=== PATIENT | male | born 1970 | race Asian ===

== ENCOUNTER 2019-09-28 07:46 | Day surgery (SDC) | payer OTHER, SELFPAY ==
[2019-09-28] MEDS: sodium chloride 0.9% 1,000 ML 30 ML IV (08:05)
[2019-09-28 08:10] VITALS: BP 132/87; PULSE 60; RESP 18; TEMP 36.1; O2SAT 99
--- NOTE | 2019-09-28 08:12 | ANES.PREANE2 ---
Pre-Anesthetic Assessment Pre-Anesthetic Assessment: Height/Weight: Height 1.75 m Temp Pulse Resp BP Pulse Ox 97 F L 60 18 132/87 99 09/28/19 08:10 09/28/19 08:10 09/28/19 08:10 09/28/19 08:10 09/28/19 08:10 Preop Diagnosis: Symptomatic hemorrhoids Proposed Procedure: Operation Date: 09/28/19 09:00 Proposed Procedures p Hemorroidectomy(Not Applicable) - Juan Canseco MD Last intake: Intake Last Liquid Date 09/27/19 Last Solid Date 09/27/19 Social: Social History: No alcohol and No tobacco Exam: Pre-Anes Outpt Exam: alert, oriented x 3, clear to auscultation bilaterally and regular rate & rhythm Airway: Submandibular: WNL Cervical ROM: WNL MP: 1 Dentition: Other (teeth ok) History/ROS: No significant complaints Anesthetic Plan: ASA status: 1 Anesthesia: Anesthesia Evaluation and General Risk of > 500 ml blood loss (7ml/kg in children): No PFSH Anesthesia PFSH: Surgical History H/O circumcision Family History Other Diabetes Denies family history of CAD (coronary artery disease) Anesthesia complication Bleeding disorder Cancer Social History Smoking and tobacco status: never smoked Alcohol intake: never Household members: family Marital status: History of recent travel: No Data Anesthesia Cardiac Studies: No Data to Display
--- NOTE | 2019-09-28 10:55 | W.PM.OPSUD ---
Surgery/Procedure H&P Update DATE OF PROCEDURE: September 28, 2019 DATE H&P PERFORMED: 09/26/19 H&P UPDATE INFORMATION: I have reviewed H&P completed within last 30 days, I have examined patient prior to procedure and No changes to prior documentation PREOP DIAGNOSIS: Symptomatic hemorrhoids PLANNED PROCEDURE: Operation Date: 09/28/19 09:00 Proposed Procedures p Hemorroidectomy(Not Applicable) - Juan Canseco MD
[2019-09-28 11:01] VITALS: BP 110/66; PULSE 47; RESP 18; TEMP 36.3; O2SAT 100
--- NOTE | 2019-09-28 11:05 | PM.OP ---
Operative Report Date of procedure: September 28, 2019 Pre-op Diagnosis: Symptomatic hemorrhoids Post-op Diagnosis: Grade 4 right lateral hemorrhoidal column. Procedure Done: Open hemorrhoidectomy Pathology: Hemorrhoidal tissue Surgeon: Juan Canseco Anesthesia: MAC Procedure: The patient was taken to the operating room and was placed in the left lateral position under MAC. The perianal area was prepped and draped in a sterile manner. Examination under anesthesia revealed grade 4 internal hemorrhoids in the left lateral location. The hemorrhoidal tissue on the left lateral location was grasped with Allis clamps, and using LigaSure the hemorrhoidal tissue was excised staying superficial to the sphincter muscle up to a point superior to the dentate line. The mucosal defect was closed with running 3-0 chromic suture. 20 cc of combination of Exparel, 0.5% Marcaine and saline was injected for a perianal block. There was no bleeding noted. The excised specimens were sent to pathology. A Vaseline gauze was placed in the anal canal and the patient was transferred to recovery room in stable condition.
== END 2019-09-28 11:45 | disposition home or self-care (01) ==
PROVIDERS: Visit Provider Surgery
PROC: (CPT 46260; principal; 2019-09-28 09:00)
DX: K64.8 Other hemorrhoids (principal)
CPT/HCPCS: 46260; 12345; 88304; C9290; J0690; J3010; J3490; J7030

== ENCOUNTER → 2020-02-08 11:52 | Outpatient (BNVA) | payer OTHER, SELFPAY | PROVIDERS: Visit Provider Family Medicine Adult Medicine | DX: Z00.00 Encounter for general adult medical examination without abnormal findings (principal); K64.9 Unspecified hemorrhoids; Z86.79 Personal history of other diseases of the circulatory system | CPT/HCPCS: 80053; 80061; 83036; 84443; 85025 ==

== ENCOUNTER → 2020-02-12 10:30 | Outpatient (BNVA) | payer OTHER, SELFPAY | PROVIDERS: Visit Provider Surgery | DX: Z20.828 Contact with and (suspected) exposure to other viral communicable diseases (principal); Z12.11 Encounter for screening for malignant neoplasm of colon | CPT/HCPCS: 87635 ==

== ENCOUNTER 2020-02-14 07:32 | Day surgery (SDC) | payer OTHER, SELFPAY ==
[2020-02-14 07:47] VITALS: BP 119/79; PULSE 67; RESP 16; TEMP 36.4; O2SAT 96
--- NOTE | 2020-02-14 08:01 | ANES.PREANE2 ---
Pre-Anesthetic Assessment Pre-Anesthetic Assessment: Height/Weight: Height 1.77 m Weight 81.647 kg Temp Pulse Resp BP Pulse Ox 97.5 F L 67 16 119/79 96 02/14/20 07:47 02/14/20 07:47 02/14/20 07:47 02/14/20 07:47 02/14/20 07:47 Preop Diagnosis: screening colonoscopy Proposed Procedure: Operation Date: 02/14/20 08:30 Proposed Procedures p Colonoscopy 67875 Z12.11(Not Applicable) - Juan Canseco MD Was Beta [place] taken within 24 hours: N/A Last intake: Intake Last Liquid Date 02/13/20 Last Liquid Time 22:00 Last Solid Date 02/12/20 Last Solid Time 22:00 Social: Social History: No alcohol and No tobacco Exam: Pre-Anes Outpt Exam: alert, oriented x 3, clear to auscultation bilaterally and regular rate & rhythm Airway: Submandibular: WNL Cervical ROM: WNL MP: 2 Dentition: Full History/ROS: No significant history except as noted Anesthetic Plan: ASA status: 1 Anesthesia: MAC Risk of > 500 ml blood loss (7ml/kg in children): No PFSH Anesthesia PFSH: Medical History (Updated 02/11/20 @ 15:07 by Vik Munoz MD) Bradycardia by electrocardiogram Encounter for wellness examination in adult History of abnormal electrocardiogram Hyperlipidemia Pre-diabetes Surgical History H/O circumcision S/P hemorrhoidectomy (09/28/19) Family History Other Diabetes Denies family history of CAD (coronary artery disease) Anesthesia complication Bleeding disorder Cancer Social History Smoking and tobacco status: never smoked Alcohol intake: never Household members: family Marital status: History of recent travel: No Data Anesthesia Cardiac Studies: No Data to Display
[2020-02-14] MEDS: sodium chloride 0.9% 1,000 ML 30 ML IV (08:12)
--- NOTE | 2020-02-14 08:21 | W.PM.OPSFHP ---
Same Day Surgery H&P Indication for Procedure/HPI DATE OF PROCEDURE: February 14, 2020 CHIEF COMPLAINT/INDICATIONFOR SURGICAL PROCEDURE: screening PREOP DIAGNOSIS: screening colonoscopy PLANNED PROCEDRUE: Operation Date: 02/14/20 08:30 Proposed Procedures p Colonoscopy 26690 Z12.11(Not Applicable) - Juan Canseco MD Medications/Allergies* Allergies/Adverse Reactions Allergy/AdvReac Type Severity Reaction Status Date / Time No Known Allergies Allergy Verified 02/01/20 15:04 Current Medications: Generic Name Dose Route Start Last Admin Trade Name Freq PRN Reason Stop Dose Admin Sodium Chloride 1,000 mls @ 30 mls/hr 02/14/20 07:45 02/14/20 08:12 Sodium Chloride 0.9% IV 02/15/20 07:44 30 mls/hr .Q24H AMITA Administration Pertinent History/Comorbid Conditions* Medical History (Updated 02/11/20 @ 15:07 by Vik Munoz MD) Bradycardia by electrocardiogram Encounter for wellness examination in adult History of abnormal electrocardiogram Hyperlipidemia Pre-diabetes Surgical History (Updated 10/16/19 @ 17:32 by Juan Canseco MD) H/O circumcision S/P hemorrhoidectomy (09/28/19) Family History (Updated 09/26/19 @ 16:19 by Jaquelin Collier LPN) Diabetes Denies family history of CAD (coronary artery disease) Anesthesia complication Bleeding disorder Cancer Social History Smoking and tobacco status: never smoked Alcohol intake: never Household members: family Marital status: History of recent travel: No Pertinent Exam Findings alert, oriented x 3 and regular rate & rhythm Recommendations Surgery/Procedure today Coding Level of Care Code Acute Kiln Car Unloader for Thompson Jeong
[2020-02-14 08:47] VITALS: BP 108/67; PULSE 74; RESP 18; TEMP 36.2; O2SAT 99
[2020-02-14 09:17] VITALS: BP 110/71; PULSE 67; RESP 18; O2SAT 96
--- NOTE | 2020-02-14 10:13 | ANE.PACU2 ---
Inpatient post-anesthesia follow up: Airway intact: Yes Vital signs: Temperature 97.1 F Pulse Rate 67 Respiratory Rate 18 Blood Pressure 110/71 Pulse Oximetry 96 Oxygen Delivery Me thod Room Air Oxygen Flow Rate Fraction of Inspir ed Oxygen Hydration adequate: Yes Nausea and vomiting: No Pain level: 1 Mental status: Baseline
== END 2020-02-14 09:22 | disposition home or self-care (01) ==
PROVIDERS: PCP Family Medicine Adult Medicine; Visit Provider Surgery
PROC: 0DJD8ZZ Inspection of Lower Intestinal Tract, Via Natural or Artificial Opening Endoscopic (ICD-10-PCS; CPT 45378; principal; 2020-02-14 08:30)
DX: Z12.11 Encounter for screening for malignant neoplasm of colon (principal); E78.5 Hyperlipidemia, unspecified; R73.03 Prediabetes
CPT/HCPCS: 12345; 45378; J2704; J7030

== ENCOUNTER → 2021-01-09 11:19 | Outpatient (BNVA) | payer OTHER, SELFPAY | PROVIDERS: PCP Family Medicine Adult Medicine; Visit Provider Family Medicine Adult Medicine | DX: Z00.00 Encounter for general adult medical examination without abnormal findings (principal); R73.03 Prediabetes; E78.2 Mixed hyperlipidemia | CPT/HCPCS: 80053; 80061; 83036 ==

== ENCOUNTER → 2021-10-24 15:01 | Outpatient (BNVA) | payer OTHER, SELFPAY | PROVIDERS: PCP Family Medicine Adult Medicine; Visit Provider Family Medicine Adult Medicine | DX: H53.9 Unspecified visual disturbance (principal); Z23 Encounter for immunization; E78.2 Mixed hyperlipidemia; R73.03 Prediabetes | CPT/HCPCS: 80053; 80061; 83036; 84443; 85025 ==

== ENCOUNTER → 2022-07-24 10:26 | Outpatient (BNVA) | payer OTHER, SELFPAY | PROVIDERS: PCP Family Medicine Adult Medicine; Visit Provider Family Medicine Adult Medicine | DX: R73.03 Prediabetes (principal); R00.1 Bradycardia, unspecified; R41.89 Other symptoms and signs involving cognitive functions and awareness; E78.5 Hyperlipidemia, unspecified | CPT/HCPCS: 80053; 80061; 83036; 85025 ==

== ENCOUNTER 2023-03-16 07:29 | Emergency (ER) | payer BC, SELFPAY ==
[2023-03-16 07:36] VITALS: BP 126/88; PULSE 67; RESP 18; TEMP 36.8; O2SAT 96
--- NOTE | 2023-03-16 07:48 | XR_ITS ---
WS: [id number] XR wrist RT min 3V* [id number] REASON FOR EXAM: trauma FINDINGS: Transverse fracture through the distal right radial metaphysis with minimal displacement. No signific ant foreshortening of the radius. Mild dorsal tilting of the radial articular surface. Vertical component of the fracture through the medial third of the radial metaphysis which extends in to the joint space. Radial ulnar articulation appears normal. Normal scapholunate interval. IMPRESSION: Right wrist fracture as above.
[2023-03-16 08:34] VITALS: RESP 18
--- NOTE | 2023-03-16 08:46 | ED_ITS ---
HPI - Extremity Problem General: Chief complaint: Extremity Injury, Upper Stated complaint: fell, right wrist pain Time Seen by Provider: 03/16/23 07:48 Source: patient Mode of arrival: ambulatory History of Present Illness: 53-year-old male presents emergency room with right wrist pain after a fall yesterday landed on an outstretched right hand. He has pain and swelling and some ecchymosis difficulty with construction controller. He denies any other injury denies hit his head did not lose consciousness. Pain with any attempted flexion or extension of the wrist. MD Complaint: joint swelling and joint pain Onset (ago): day(s) (1) Pain Consistency: constant Location: right (Rest) Radiation: none Relieving factors: nothing Exacerbating factors: nothing Associated symptoms: Deny arthralgias, chest pain, fever(s), myalgias, rash or short of breath Review of Systems Const: Denies: fever(s) Card: Denies: chest pain Resp: Denies: dyspnea GI: Denies: abdominal pain : Denies: dysuria, urinary frequency or urinary urgency Musc: Denies: neck pain or back pain Skin/Breast: Denies: rash PFSH ED PFSH: Medical History Brain fog Changes in vision Hyperlipidemia Pre-diabetes History of abnormal electrocardiogram Surgical History Status post colonoscopy (02/14/20) normal S/P hemorrhoidectomy (09/28/19) H/O circumcision Family History Other Diabetes Denies family history of CAD (coronary artery disease) Anesthesia complication Bleeding disorder Cancer Social History Smoking and tobacco/nicotine status: never used tobacco/nicotine Alcohol intake: never Substance/Drug Use: never Household members: family Marital status: Physical Exam Const: GENERAL APPEARANCE: cooperative ORIENTATION/CONSCIOUSNESS: Yes awake, Yes oriented to person, Yes oriented to place and Yes oriented to time HENMT: COMMON NORMALS: normocephalic, atraumatic and hearing grossly normal bilaterally HEAD & SCALP: normocephalic and atraumatic Resp: COMMON NORMALS: normal respiratory effort, No retractions, No use of accessory muscles and clear to auscultation bilaterally AUSCULTATION: clear to auscultation bilaterally Cardio: COMMON NORMALS: regular rate, regular rhythm and No murmurs present (Cardio) RATE: regular rate RHYTHM: regular rhythm Extremity: OTHER: Right wrist pain and swelling some mild ecchymosis no obvious deformity Neuro: SENSORIUM/ORIENTATION: Yes oriented to person, Yes oriented to place and Yes oriented to time Skin: COMMON NORMALS: no rashes or lesions noted GENERAL SKIN EXAM: no rashes or lesions noted Course Vital Signs: Vital signs: Vital Signs Temperature 98.2 F 03/16/23 07:36 Pulse Rate 67 03/16/23 07:36 Respiratory Rate 18 03/16/23 08:34 Blood Pressure 126/88 03/16/23 07:36 Pulse Oximetry 96 03/16/23 07:36 Oxygen Delivery Me thod Room Air 03/16/23 07:36 MDM - Extremity (Nontraumatic) Medical Decision Making Fracture without displacement placed in a splint refer to Ortho All radiology interpretation(s) finalized by discharge Discharge Plan Discharge Patient Disposition: Home Clinical Impression: Distal radial fracture Condition: Stable Prescriptions: New hydrocodone-acetaminophen 5-325 mg tablet 1 tab PO Q6H PRN (Reason: pain) Qty: 20 0RF No Action simvastatin 20 mg tablet 20 mg PO DAILY Qty: 90 1RF metformin 500 mg tablet 500 mg PO DAILY Qty: 90 1RF Discharge Orders: Discharge ED (Routine); Ordered 03/16/23 Ordered By: Eddie Pacheco Referrals: Vik Munoz MD [Primary Care Provider] - Discharge Diet: Usual diet Discharge Activity: Increase activity as tolerated Patient Instructions: Opioid Safety, Pain Management Activity Restrictions/Additional Instructions: Thank you for choosing [facility] for your healthcare needs today. Please realize this is an emergency room and that we are providing you with a medical screening exam and this may not be complete and all inclusive of all the testing and or work up that you may need to determine your ailment or severity of your illness. It is very important that you follow up as instructed or that you return to the Emergency Department should you have concerns or if your condition changes or worsens in any way. You were seen today for wrist pain. X-ray shows fracture you are placed in a splint case management make arrangements for you to follow-up with orthopedics. Use the splint and sling until released by orthopedics. Coding Level of Care Code ED Collections Agent for Thompson Jeong
== END 2023-03-16 09:25 | disposition home or self-care (01) ==
PROVIDERS: Emergency Provider Family Medicine; PCP Family Medicine Adult Medicine
DX: S52.501A Unspecified fracture of the lower end of right radius, initial encounter for closed fracture (principal); E78.5 Hyperlipidemia, unspecified; W19.XXXA Unspecified fall, initial encounter
CPT/HCPCS: 73110; 99283

== ENCOUNTER → 2023-03-22 08:49 | Outpatient (BNVA) | payer BC, SELFPAY | PROVIDERS: PCP Family Medicine Adult Medicine; Referring Provider Family Medicine; Visit Provider Nurse Practitioner | DX: S52.561A Barton's fracture of right radius, initial encounter for closed fracture; W00.9XXA Unspecified fall due to ice and snow, initial encounter | CPT/HCPCS: 73110 ==

== ENCOUNTER 2023-03-22 10:07 | Outpatient (CLI) | payer BC, SELFPAY | END 2023-03-22 10:08 | disposition home or self-care (01) | LOC: SPT 10:08 | PROVIDERS: PCP Family Medicine Adult Medicine; Visit Provider Nurse Practitioner | DX: Z46.89 Encounter for fitting and adjustment of other specified devices (principal); S52.501D Unspecified fracture of the lower end of right radius, subsequent encounter for closed fracture with routine healing; X58.XXXD Exposure to other specified factors, subsequent encounter | CPT/HCPCS: 97760; L3982 ==

== ENCOUNTER → 2023-04-28 09:49 | Outpatient (BNVA) | payer BC, SELFPAY | PROVIDERS: PCP Family Medicine Adult Medicine; Visit Provider Nurse Practitioner | DX: S52.561D Barton's fracture of right radius, subsequent encounter for closed fracture with routine healing (principal); W00.9XXD Unspecified fall due to ice and snow, subsequent encounter | CPT/HCPCS: 73110 ==

== ENCOUNTER → 2023-05-19 09:27 | Outpatient (BNVA) | payer BC, SELFPAY | PROVIDERS: PCP Family Medicine Adult Medicine; Visit Provider Nurse Practitioner | DX: S52.561D Barton's fracture of right radius, subsequent encounter for closed fracture with routine healing; W00.9XXD Unspecified fall due to ice and snow, subsequent encounter | CPT/HCPCS: 73110 ==

== ENCOUNTER → 2024-10-19 08:18 | Outpatient (BNVA) | payer BC, SELFPAY | PROVIDERS: PCP Family Medicine; Visit Provider Family Medicine | DX: Z12.5 Encounter for screening for malignant neoplasm of prostate (principal); E78.2 Mixed hyperlipidemia; R73.03 Prediabetes; R53.83 Other fatigue | CPT/HCPCS: 80053; 80061; 83036; 84403; 84443; 85025; G0103 ==